=== PATIENT | male | born 1965 | race Caucasian/White ===

== ENCOUNTER 2018-06-02 06:52 | Day surgery (SDC) | payer OTHER ==
[~2018-06-02] VITALS: Ht 167.6 cm; Wt 94.9 kg
--- NOTE | 2018-06-02 08:07 | PREAC ---
Date/Time of Note Date/Time of Note DATE: 06/02/18 TIME: 08:06 Anesthesia Eval and Record Evaluation Time Pre-Procedure Interview DATE: 06/02/18 TIME: 08:06 Age 52 Sex male NPO: 8 hrs Preoperative diagnosis Screening Planned procedure Colonoscopy Past Medical History Past Medical History: Includes Cardio: HTN, Dyslipidemia Surgery & Anesthesia Issues No known issue Meds Anticoagulation: No Beta Marie within 24 hr: No Reason Beta Marie not given: Pt. not on B-Marie Meds reviewed: Yes Allergies Allergies Reviewed: Yes Labs/Studies Labs Reviewed: Reviewed by anesthesiologist test: N/A Studies: ECG (n/a), CXR (n/a) Pre-procedure Exam Airway: Adequate mouth opening, Adequate thyromental dist Mallampati: Mallampati II Teeth: Normal Lung: Normal Heart: Normal ASA Physical Status ASA physical status: 2 Emergency: None Planned Anesthetic General/MAC: MAC Planned Pain Management Parenteral pain med Pre-operative Attestations Prior to commencing anesthesia and surgery, the patient was re-evaluated, there was verification of: *The patient's identity *The results of appropriate recent lab work and preoperative vital signs *The above evaluation not changing prior to induction *Anesthetic plan, risk benefits, alternative and complications discussed with patient/family; questions answered; patient/family understands, accepts and wishes to proceed. DARSHAN DURÁN MD Jun 02, 2018 08:07
[2018-06-02 08:12] VITALS: Ht 167.6 cm; Wt 94.9 kg
[2018-06-02] MEDS ORDERED: BENA20TA4 PO (08:19)
[2018-06-02] MEDS ORDERED: AMLO2.5T78 PO (08:19)
[2018-06-02] MEDS ORDERED: VIT D (08:19)
[2018-06-02] MEDS ORDERED: FENO200 PO (08:19)
[2018-06-02 08:48] VITALS: BP 152/98; PULSE 70; RESP 18
--- NOTE | 2018-06-02 09:22 | PAC ---
Date/Time of Note Date/Time of Note DATE: 06/02/18 TIME: 09:21 Post-Anesthesia Notes Post-Anesthesia Note Last documented vital signs Vital Signs Date Temp Pulse Resp B/P (MAP) Pulse Ox O2 O2 Flow FiO2 Time Delivery Rate 06/02/18 98.1 70 18 152/98 98 Room Air 09:18 (116) Activity: WNL Respiratory function: WNL Cardiovascular function: WNL Mental status: Baseline Pain reasonably controlled: Yes Hydration appropriate: Yes Nausea/Vomiting absent: Yes DARSHAN DURÁN MD Jun 02, 2018 09:22
[2018-06-02] MEDS ORDERED: PROPOFOL 40 ML ONE (09:23)
[2018-06-02 09:52] VITALS: BP 142/98; PULSE 78; RESP 23
== END 2018-06-02 10:10 | disposition home or self-care (01) ==
LOC: GIL 06:52
PROVIDERS: ATTEND Internal Medicine Gastroenterology
DX: Z12.11 Encounter for screening for malignant neoplasm of colon (principal); D12.5 Benign neoplasm of sigmoid colon; K64.8 Other hemorrhoids; I10 Essential (primary) hypertension; E78.5 Hyperlipidemia, unspecified
CPT/HCPCS: 45380; Z7610; 88305